=== PATIENT | male | born 1965 | race Caucasian/White ===

== ENCOUNTER → 2018-03-08 | Outpatient (CLI) | payer OTHER ==
[~2018-03-08] MED LIST: AMLO10TA2 PO; BENA10TA2 PO
[2018-03-08 12:44] LABS: ALANINE AMINOTRANSFERASE 56 U/L (12-78); ANION GAP 7 mmol/L (5-15); CALCIUM 9.3 mg/dL (8.5-10.1); CHLORIDE 109 mmol/L (98-107)
[2018-03-08 12:47] LABS: ALKALINE PHOSPHATASE 52 U/L (45-117); BILIRUBIN,TOTAL 0.8 mg/dL (0.2-1.0); CREATININE 1.11 mg/dL (0.7-1.3); TOTAL PROTEIN 7.5 g/dL (6.4-8.2)
== END | disposition home or self-care (01) ==
LOC: STAR 10:30
PROVIDERS: ATTEND Surgery
DX: Z01.818 Encounter for other preprocedural examination (principal)
CPT/HCPCS: 36415; 80053

== ENCOUNTER 2018-03-12 05:58 | Day surgery (SDC) | payer OTHER ==
[2018-03-08 11:00] VITALS: BP 149/102
[~2018-03-12] VITALS: Ht 188 cm; Wt 124.7 kg
[2018-03-12] MEDS ORDERED: BUPIVACAINE 0.25% ONE (06:08)
[2018-03-12] MEDS ORDERED: EPINEPHRINE 1 MG/ML, 1ML ONE (06:08)
[2018-03-12] MEDS ORDERED: LACTATED RINGERS 1,000 ML IV SCH (06:34)
[2018-03-12] MEDS ORDERED: LIDOCAINE-MPF 1%, 2ML ONE (06:44)
[2018-03-12] MEDS ORDERED: ACETAMINOPHEN 500 MG TABLET PO ONE (07:00)
[2018-03-12] MEDS ORDERED: LIDOCAINE-MPF 1%, 2ML INFIL ONE (07:00)
[2018-03-12] MEDS ORDERED: ONDANSETRON ODT 8 MG PO ONE (07:00)
[2018-03-12] MEDS ORDERED: GABAPENTIN 300 MG CAPSULE PO ONE (07:00)
[2018-03-12] MEDS ORDERED: LIDOCAINE GEL 2%, 5ML ONE (07:09)
[2018-03-12] MEDS ORDERED: FENTANYL PF 100 MCG/2ML ONE (07:10)
[2018-03-12] MEDS ORDERED: MIDAZOLAM 1 MG/ML, 2ML ONE (07:10)
[2018-03-12] MEDS ORDERED: KETOROLAC 30 MG/1 ML ONE (07:17)
[2018-03-12] MEDS ORDERED: DEXAMETHASONE 4 MG/ML, 1ML ONE (07:44)
[2018-03-12] MEDS ORDERED: ROCURONIUM 10MG/ML,5ML ONE (07:44)
[2018-03-12] MEDS ORDERED: ONDANSETRON 2MG/ML, 2ML ONE (07:44)
[2018-03-12] MEDS ORDERED: CEFAZOLIN 1,000 MG ONE (07:44)
[2018-03-12] MEDS ORDERED: GLYCOPYRROLATE 0.2MG/1ML, 5ML ONE (07:44)
[2018-03-12] MEDS ORDERED: NEOSTIGMINE 1 MG/ML, 10ML ONE (07:44)
[2018-03-12] MEDS ORDERED: PROPOFOL 10 MG/ML, 20ML ONE (07:44)
[2018-03-12] MEDS ORDERED: SUCCINYLCHOLINE 20 MG/ML, 10ML ONE (07:44)
[2018-03-12] MEDS ORDERED: SCOPOLAMINE PATCH, 1.5MG PATCH.TD72 TD PRN (08:00)
[2018-03-12] MEDS ORDERED: hydrALAzine 20 MG/ML, 1ML IV PRN (08:00)
[2018-03-12] MEDS ORDERED: PROMETHAZINE 25 MG/ML, 1ML IV PRN (08:00)
[2018-03-12] MEDS ORDERED: DIAZEPAM 5 MG/ML, 2ML IVPush PRN (08:00)
[2018-03-12] MEDS ORDERED: OXYcodone 5 MG/5 ML ORAL.SOL UDC PO PRN (08:00)
[2018-03-12] MEDS ORDERED: PROMETHAZINE 25 MG SUPP PR PRN (08:00)
[2018-03-12] MEDS ORDERED: MEPERIDINE/PF 25MG/0.5ML IVPush PRN (08:00)
[2018-03-12] MEDS ORDERED: EPHEDRINE 50 MG/ML, 1ML IM PRN (08:00)
[2018-03-12] MEDS ORDERED: ALBUTEROL/IPRATROPIUM 2.5MG/0.5MG, 3 ML NPPB PRN (08:00)
[2018-03-12] MEDS ORDERED: LABETALOL 5MG/ML, 20ML IV PRN (08:00)
[2018-03-12] MEDS ORDERED: MIDAZOLAM 1 MG/ML, 2ML IV PRN (08:00)
[2018-03-12] MEDS ORDERED: HYDROmorphone 1 MG/ML, 1ML IV PRN (08:00)
[2018-03-12] MEDS ORDERED: FENTANYL PF 100 MCG/2ML IV PRN (08:00)
[2018-03-12] MEDS ORDERED: MORPHINE SULFATE 4 MG/ML, 1ML IVPush PRN (08:00)
[2018-03-12] MEDS ORDERED: ONDANSETRON ODT 8 MG PO PRN (08:00)
[2018-03-12] MEDS ORDERED: MEPERIDINE/PF 50 MG/ML ONE (08:12)
[2018-03-12] MEDS ORDERED: OXYcodone 5 MG/5 ML ORAL.SOL UDC ONE (08:12)
== END 2018-03-12 10:30 ==
LOC: OUT 05:58
PROVIDERS: ATTEND Surgery
DX: K81.1 Chronic cholecystitis (principal); I10 Essential (primary) hypertension; Z98.890 Other specified postprocedural states; Z72.89 Other problems related to lifestyle
CPT/HCPCS: 47562; 88304; C1729; J0171; J0330; J0690; J1100; J1885; J2175; J2250; J2405; J2704; J2710; J3010; J3490; J7120; Q0162

== ENCOUNTER 2019-04-19 09:32 | Outpatient (CLI) | payer OTHER | END 2019-04-19 23:59 | disposition home or self-care (01) | LOC: CVU 09:32 | PROVIDERS: ATTEND Internal Medicine Cardiovascular Disease | DX: I45.19 Other right bundle-branch block (principal); I10 Essential (primary) hypertension | CPT/HCPCS: 93306 ==

== ENCOUNTER 2019-05-06 12:53 | Outpatient (CLI) | payer OTHER | END 2019-05-06 23:59 | disposition home or self-care (01) | LOC: CFH 12:53 | PROVIDERS: ATTEND Internal Medicine Cardiovascular Disease | DX: I25.89 Other forms of chronic ischemic heart disease (principal); I45.19 Other right bundle-branch block | CPT/HCPCS: 78452; 93017; A9502 ==

== ENCOUNTER 2021-01-20 11:12 | Emergency (ER) | payer OTHER ==
[~2021-01-20] VITALS: Ht 185.4 cm; Wt 119.7 kg
[~2021-01-20 11:12] MED LIST changes: +AMLO-211 PO; -AMLO10TA2 PO; +ASPI81TA45 PO; -BENA10TA2 PO; +BENA10TA59 PO
[2021-01-20] MEDS ORDERED: ASPIRIN 81 MG TABLET CHEW PO ONE (12:00)
[2021-01-20] MEDS ORDERED: ASPIRIN 81 MG TABLET CHEW ONE (12:03)
[2021-01-20 12:04] LABS: BASOPHILS % (AUTO) 1 % (0-1); EOSINOPHILS % (AUTO) 2 % (1-7); LYMPHOCYTES % (AUTO) 24 % (22-44); MEAN CORPUSCULAR HEMOGLOBIN 31.1 pg (27.5-34.5); MEAN PLATELET VOLUME 9.6 fL (7.4-10.4); MONOCYTES % (AUTO) 10 % (2-9); NEUTROPHILS % (AUTO) 63 % (42-75); PLATELET COUNT 211 x10^3/uL (130-400); RED BLOOD COUNT 5.85 x10^6/uL (4.38-5.82); RED CELL DISTRIBUTION WIDTH 13.1 % (9.4-14.8)
[2021-01-20 12:12] LABS: CHLORIDE 106 mmol/L (98-107); MD NO
[2021-01-20 12:21] LABS: ALANINE AMINOTRANSFERASE 65 U/L (12-78); ALBUMIN 4.4 g/dL (3.4-5.0); ALKALINE PHOSPHATASE 66 U/L (45-117); ANION GAP 4 mmol/L (5-15); BILIRUBIN,TOTAL 0.7 mg/dL (0.2-1.0); CALCIUM 9.2 mg/dL (8.5-10.1); FREE T4 (FREE THYROXINE) 1.06 ng/dL (0.76-1.46); TOTAL PROTEIN 8.1 g/dL (6.4-8.2); TROPONIN I < 0.015 ng/mL (0.000-0.045)
--- NOTE | 2021-01-20 12:27 | NUR ---
PT PRESENTS TO ED W C/O INTERMITTENT CHEST TIGHTNESS STARTING IN SEPTEMBER. PT CURRENTLY TAKES LEVOTHYROXINE. PT STATES CURRENT PAIN 4/10. PT A&O, RESPS EVEN AND UNLABORED, ALL MONIOTRS IN PLACE. ERMD AT BEDSIDE FOR EVALUATION.
--- NOTE | 2021-01-20 13:20 | NUR ---
PT A&O, RESPS EVEN AND UNLABORED. NO PAIN AT THIS TIME. DISCHARGE ORDERS RECIEVED
[2021-01-20] MEDS ORDERED: FUROSEMIDE 20 MG TABLET PO ONE ×2 (13:30)
--- NOTE | 2021-01-20 13:31 | NUR ---
PRECEPTOR RN NOTE: LASIX ORDER CLARIFIED WITH EDPA, LASIX TO BE ADMINISTERED 20 MG PO (TAB) ONCE.
[2021-01-20] MEDS ORDERED: FUROSEMIDE 20 MG TABLET ONE (13:33)
[2021-01-20 13:37] VITALS: BP 135/89
--- NOTE | 2021-01-20 13:54 | NUR ---
DISCHARGE INSTRUCTIONS AND RETURN CRITERIA REVIEWED. PT EDUCATED ON MEDICATIONS AND FOLLOW-UP, VERBALIZED UNDERSTANDING. PT A&O, RESPS EVEN AND UNLABORED, NADN. AMBULATORY TO DISCHARGE DESK WITH STEADY GAIT, ACCOMPANIED BY DAUGHTER.
== END 2021-01-20 13:54 | disposition home or self-care (01) ==
LOC: ED 11:28
DX: R60.0 Localized edema (principal); R07.89 Other chest pain; R06.02 Shortness of breath; R06.00 Dyspnea, unspecified; I10 Essential (primary) hypertension; I45.10 Unspecified right bundle-branch block; E03.9 Hypothyroidism, unspecified
CPT/HCPCS: 36415; 71045; 80053; 83735; 83880; 84439; 84443; 84484; 85025; 93005; 99285